=== PATIENT | male | born 1965 | race Two or more races ===

== ENCOUNTER 2025-01-27 13:47 | Outpatient (CLI) | payer OTHER ==
[~2025-01-27] VITALS: Ht 170.2 cm; Wt 85.7 kg
[2025-01-27 14:02] VITALS: PULSE 77; RESP 18; O2SAT 98
[2025-01-27] MEDS: albuterol 2.5 MG/3 ML nebule NEB ONE (14:32)
[2025-01-27 15:00] VITALS: PULSE 84; RESP 18
--- NOTE | 2025-01-28 15:46 | PROCEDURE NOTE - Respiratory ---
Procedure Note-Respiratory Providers to CC Copies To 1: NESTOR LOJA DO Procedure Name: This is a spirometry study dated January 27, 2025. The spirometry study was performed both before and after inhaled bronchodilator. Spirometry measurements: Both the forced vital capacity and the FEV1 are normal. The FEV1 ratio is normal. The flow rates are normal. After inhaled bronchodilator was administered there is no appreciable change in the flow volume curve. Conclusion: Normal spirometry study. This patient's asthma appears to be under excellent control on the current medications. We have no previous studies for comparison. ALEC HODGSON MD Jan 28, 2025 15:46
== END 2025-01-27 23:59 | disposition home or self-care (01) ==
LOC: RT 13:47
PROVIDERS: ATTEND Chiropractor
DX: J45.991 Cough variant asthma (principal); R06.02 Shortness of breath
CPT/HCPCS: 94060; 94760